=== PATIENT | male | born 1975 | race Caucasian/White ===

== ENCOUNTER 2016-10-12 07:23 | Emergency (ER) | payer MEDICAID, OTHER ==
[2016-10-12] MEDS ORDERED: cefTRIAXone (Rocephin) 250 mg Inj IM STA (07:50)
--- NOTE | 2016-10-12 08:02 | C.PDOC ---
History Of Present Illness Patient reports he has whitish discharge from penis and burning on urination for 1 week. Denies fever, chills or abdominal pain Time Seen by Provider: 10/12/16 07:26 Chief Complaint (Nursing): Male Genitourinary History Per: Patient History/Exam Limitations: no limitations Onset/Duration Of Symptoms: Days (7) Current Symptoms Are (Timing): Still Present Severity: Mild Quality Of Discomfort: Burning Associated Symptoms: Urinary Symptoms Alleviating Factors: None Recent travel outside of the [place]: No Past Medical History Reviewed: Historical Data, Nursing Documentation, Vital Signs Vital Signs: Last Vital Signs Temp 97.8 F 10/12/16 07:31 Pulse 82 10/12/16 07:31 Resp 16 10/12/16 07:31 BP 129/95 H 10/12/16 07:31 Pulse Ox 98 10/12/16 08:04 - Medical History PMH: Hypercholesterolemia, Sexually Transmitted Disease Surgical History: No Surg Hx - [facility] Procedures OTHER SKIN & SUBQ I D (01/31/13) Family History: States: No Known Family Hx - Social History Hx Tobacco Use: Yes Hx Alcohol Use: Yes Hx Substance Use: No - Immunization History Hx Tetanus Toxoid Vaccination: No Hx Influenza Vaccination: No Hx Pneumococcal Vaccination: No Review Of Systems Constitutional: Negative for: Fever, Chills Gastrointestinal: Negative for: Abdominal Pain Genitourinary: Positive for: Dysuria, Penile Discharge Physical Exam - Physical Exam Appears: Well, Non-toxic Cardiovascular: Rhythm Regular Respiratory: Normal Breath Sounds Gastrointestinal/Abdominal: Normal Exam Male Genital: Normal Inspection ED Course And Treatment O2 Sat by Pulse Oximetry: 98 Pulse Ox Interpretation: Normal Progress Note: Urinalysis ordered. Treated with rocephin 250 mg IM and zithromax 1 gm Reassessment Condition: Unchanged Disposition - Disposition Referrals: [facility] [Outside] [facility] [Outside] Disposition: HOME/ ROUTINE Disposition Time: 08:30 Condition: GOOD Additional Instructions: Follow up at clinic for further evaluation Instructions: Dysuria (ED), Sexually Transmitted Diseases (ED) - POA Present On Arrival: None - Clinical Impression Clinical Impression: Dysuria, Sexually transmitted disease in male
[2016-10-12 08:14] LABS: RBC URINE 2 /hpf (0-3); URINE BACTERIA RARE (<OCC); URINE BILIRUBIN NEGATIVE (NEGATIVE); URINE BLOOD NEGATIVE (NEGATIVE); URINE COLOR Yellow (YELLOW); URINE GLUCOSE (UA) NORMAL (Normal); URINE KETONE NEGATIVE (NEGATIVE); URINE LEUKOCYTE ESTERASE 2+ Leu/uL (Negative); URINE PROTEIN NEGATIVE (NEGATIVE); URINE UROBILINOGEN NORMAL mg/dL (0.2-1.0); WBC URINE 121 /hpf (0-5)
[2016-10-12 08:41] VITALS: BP 142/97; PULSE 95; RESP 20; TEMP 98.4; O2SAT 95
== END 2016-10-12 08:39 | disposition home or self-care (01) ==
LOC: C.ER 07:23
DX: A63.8 Other specified predominantly sexually transmitted diseases (principal); R30.0 Dysuria
CPT/HCPCS: 81001; 87491; 87591; 96372; 99284; J0696

== ENCOUNTER 2017-06-16 17:07 | Emergency (ER) | payer MEDICAID ==
[2017-06-16 17:12] VITALS: BP 146/100; PULSE 85; RESP 20; TEMP 98; O2SAT 99
--- NOTE | 2017-06-16 17:51 | C.PDOC ---
History Of Present Illness 41yo male, presents to ED with complaints of 1 week of urinary irritation and penile discharge, similar to previous episode when the patient was seen and treated in this facility. Patient states his last sexual intercourse was 3 months ago. He denies any nausea, vomiting, abdominal pain, fever or chills. He also denies any rashes. No other complaints. Time Seen by Provider: 06/16/17 17:16 Chief Complaint (Nursing): Male Genitourinary History Per: Patient History/Exam Limitations: no limitations Onset/Duration Of Symptoms: Days Current Symptoms Are (Timing): Still Present Quality Of Discomfort: "Pain" Associated Symptoms: Urinary Symptoms Past Medical History Reviewed: Historical Data, Nursing Documentation, Vital Signs Vital Signs: Last Vital Signs Temp 98.0 F 06/16/17 17:11 Pulse 85 06/16/17 17:11 Resp 20 06/16/17 17:11 BP 146/100 H 06/16/17 17:11 Pulse Ox 99 06/16/17 17:56 - Medical History PMH: Hypercholesterolemia, Sexually Transmitted Disease Surgical History: No Surg Hx - [facility] Procedures OTHER SKIN & SUBQ I D (01/31/13) Family History: States: No Known Family Hx - Social History Hx Tobacco Use: Yes Hx Alcohol Use: Yes Hx Substance Use: No - Immunization History Hx Tetanus Toxoid Vaccination: No Hx Influenza Vaccination: No Hx Pneumococcal Vaccination: No Review Of Systems Constitutional: Negative for: Fever, Chills Gastrointestinal: Negative for: Nausea, Vomiting, Diarrhea Genitourinary: Positive for: Dysuria, Penile Discharge Physical Exam - Physical Exam Appears: Non-toxic, No Acute Distress Male Genital: Other (clear discharge noted from penis; no lesions noted; both testicles descended.) ED Course And Treatment O2 Sat by Pulse Oximetry: 99 Medical Decision Making Medical Decision Making: Impression: STI Previous chart reviewed and patient was positive for Chlamydia Plan: -- Chlamydia, GC RNA/TMA -- Patient states he does not want an injection and is requesting pills; patient informed of resistance with Cippro but states he wishes to try the pills regardless. -- Zithromax 1000 mg -- Cippro 500 mg Time: 1753 Patient to be discharged home with diagnosis of uretheritis. Advised to have his partner treated as well and informed to abstain from sexual intercourse for one week. Disposition Counseled Patient/Family Regarding: Studies Performed, Diagnosis, Need For Followup - Disposition Disposition: HOME/ ROUTINE Disposition Time: 16:57 Condition: STABLE Additional Instructions: follow up with medical clinic in 2 days call to make an appointment take medications as prescribed return to hospital if symptoms worsens or progress no sexual activity for one week have partner treated you have elected treatment with pills only and understand the bacteria has been shown resistance in the past. Instructions: Sexually Transmitted Diseases (ED), Safe Sex (ED) Forms: [facility] (Lao), General Discharge Instructions - Clinical Impression Clinical Impression: STD (male) - Scribe Statement The provider has reviewed the documentation as recorded by the Stephon Wren Provider Attestation: All medical record entries made by the Stephon were at my direction and personally dictated by me. I have reviewed the chart and agree that the record accurately reflects my personal performance of the history, physical exam, medical decision making, and the department course for this patient. I have also personally directed, reviewed, and agree with the discharge instructions and disposition.
[2017-06-16 17:55] LABS: RBC URINE 1 /hpf (0-3); URINE BILIRUBIN NEGATIVE (NEGATIVE); URINE BLOOD NEGATIVE (NEGATIVE); URINE COLOR Yellow (YELLOW); URINE GLUCOSE (UA) NORMAL (Normal); URINE KETONE NEGATIVE (NEGATIVE); URINE LEUKOCYTE ESTERASE TRACE Leu/uL (Negative); URINE PROTEIN NEGATIVE (NEGATIVE); URINE UROBILINOGEN NORMAL mg/dL (0.2-1.0); WBC URINE 2 /hpf (0-5)
== END 2017-06-16 18:05 | disposition home or self-care (01) ==
LOC: C.ER 17:07
DX: A64 Unspecified sexually transmitted disease (principal)

== ENCOUNTER 2017-07-29 08:35 | Emergency (ER) | payer MEDICAID ==
--- NOTE | 2017-07-29 09:26 | C.PDOC ---
History Of Present Illness 41 year old male presents to the ED c/o recurrent dysuria. Patient was seen on the ED on 06/2017 for the same complaint but at that time refused IM antibiotics. Patient states " 1 did 1 pill and then the prescription", he states he understood the need for IM antibiotics " but i wanted to see how it would go this time" Patient had a + gonorrhea test on 06/2017. Patient denies any rash, hematuria, nausea, vomit, abdominal pain, back pain. CO RECUR DYSURIA. SEEN 06/2017 FOR SAME BUT REFUSED IM ABX AT THAT TIME. PS "I DID 1 PILL AND THEN PRESCRIPTION". STATES UNDERSTOOD NEED FOR IM ABX FROM PRIOR VISIT "BUT I WANTED TO SEE HOW IT WOULD GO THIS TIME". NO RASH, DC. +GONORRHEA 06/2017 EXAM NAD EXAM REFUSED. REMAINDER NEG Time Seen by Provider: 07/29/17 09:15 Chief Complaint (Nursing): Male Genitourinary History Per: Patient History/Exam Limitations: no limitations Onset/Duration Of Symptoms: Other (Recurrent) Current Symptoms Are (Timing): Still Present Quality Of Discomfort: "Pain" Alleviating Factors: None Recent travel outside of the [place]: No Additional History Per: Patient Past Medical History Reviewed: Historical Data, Nursing Documentation, Vital Signs Vital Signs: Last Vital Signs Temp 98.3 F 07/29/17 08:48 Pulse 74 07/29/17 08:48 Resp 15 07/29/17 08:48 BP 143/99 H 07/29/17 08:48 Pulse Ox 99 07/29/17 10:01 - Medical History PMH: Hypercholesterolemia, Sexually Transmitted Disease Surgical History: No Surg Hx - [facility] Procedures OTHER SKIN & SUBQ I D (01/31/13) Family History: States: Unknown Family Hx - Social History Hx Tobacco Use: Yes Hx Alcohol Use: Yes Hx Substance Use: No - Immunization History Hx Tetanus Toxoid Vaccination: No Hx Influenza Vaccination: No Hx Pneumococcal Vaccination: No Review Of Systems Constitutional: Negative for: Fever, Chills Cardiovascular: Negative for: Chest Pain Respiratory: Negative for: Cough Gastrointestinal: Negative for: Nausea, Vomiting, Abdominal Pain Genitourinary: Positive for: Dysuria. Negative for: Hematuria Musculoskeletal: Negative for: Back Pain Skin: Negative for: Rash Neurological: Negative for: Weakness Physical Exam - Physical Exam Appears: Non-toxic, No Acute Distress Skin: Normal Color, Warm, Dry Head: Atraumatic, Normacephalic Eye(s): bilateral: Normal Inspection Nose: No Discharge, No Deformity Oral Mucosa: Moist Neck: Normal ROM, Supple Chest: Symmetrical Cardiovascular: Rhythm Regular, No Murmur Respiratory: Normal Breath Sounds, No Rales, No Rhonchi, No Wheezing Gastrointestinal/Abdominal: Soft, No Tenderness, No Guarding, No Rebound Male Genital: Other (refused) Extremity: Normal ROM, No Pedal Edema, No Calf Tenderness, No Deformity, No Swelling Neurological/Psych: Oriented x3, Normal Speech, Normal Cognition Gait: Steady ED Course And Treatment O2 Sat by Pulse Oximetry: 99 (On RA) Pulse Ox Interpretation: Normal Progress - Data Reviewed Data Reviewed: Old records Medical Decision Making Medical Decision Making: Impression : recurrent UTIs Plan: * Chlamydia test * Rocephin 250 mg PO * Zithromycin 1,000 mg PO * Urine culture * UA Disposition Counseled Patient/Family Regarding: Studies Performed, Diagnosis, Need For Followup, Rx Given - Disposition Referrals: [facility] [Outside] [facility] [Outside] Disposition: HOME/ ROUTINE Disposition Time: 10:00 Condition: IMPROVED Prescriptions: Sulfamethoxazole/Trimethoprim [Bactrim DS 800 mg-160 mg] 1 tab PO BID #14 tab Instructions: Sexually Transmitted Diseases (ED), Urinary Tract Infection in Men (ED) Forms: [facility] (Singaporean) - Clinical Impression Clinical Impression: STD (male), Dysuria - Scribe Statement The provider has reviewed the documentation as recorded by the Scribe Klaus Bynum All medical record entries made by the Scribe were at my direction and personally dictated by me. I have reviewed the chart and agree that the record accurately reflects my personal performance of the history, physical exam, medical decision making, and the department course for this patient. I have also personally directed, reviewed, and agree with the discharge instructions and disposition.
[2017-07-29] MEDS ORDERED: cefTRIAXone (Rocephin) 250 mg Inj IM STA (09:27)
[2017-07-29] MEDS ORDERED: Azithromycin 100 mg/5 ml Susp (15 ml) PO STA (09:27)
[2017-07-29 09:57] LABS: SQUAMOUS EPITHIAL < 1 /hpf (0-5); URINE BACTERIA RARE (<OCC); URINE BILIRUBIN NEGATIVE (NEGATIVE); URINE BLOOD NEGATIVE (NEGATIVE); URINE CLARITY Hazy (Clear); URINE COLOR Yellow (YELLOW); URINE GLUCOSE (UA) NORMAL (Normal); URINE HYALINE CAST 0-2 /lpf (0-2); URINE LEUKOCYTE ESTERASE 3+ Leu/uL (Negative); URINE NITRATE NEGATIVE (NEGATIVE); URINE PROTEIN NEGATIVE (NEGATIVE); URINE UROBILINOGEN NORMAL mg/dL (0.2-1.0)
[2017-07-29 10:20] VITALS: BP 146/90; PULSE 72; RESP 20; TEMP 97.9
[2017-07-29 10:21] VITALS: O2SAT 99
== END 2017-07-29 10:25 | disposition home or self-care (01) ==
LOC: C.ER 08:35
DX: A64 Unspecified sexually transmitted disease (principal); R30.0 Dysuria
CPT/HCPCS: 81001; 87086; 87491; 87591; 96372; 99284; J0696